=== PATIENT | male | born 1970 | race Two or more races ===

== ENCOUNTER 2025-03-03 07:15 | Emergency (ER) | payer OTHER ==
[~2025-03-03] VITALS: Ht 180.3 cm; Wt 95.3 kg
[2025-03-03] MEDS ORDERED: BUTALB/ACETAMINOPHEN/CAFFEINE 1 TAB TABLET PO ONE (08:30)
[2025-03-03 09:02] LABS: BASO % 0.4 % (0.1-1.2); EOS # 0.00 (0.04-0.54); EOS % 0.0 % (0.7-7.0); LYMPH # 0.33 (1.18-3.74); LYMPH % 5.8 % (19.3-53.1); MEAN PLATELET VOLUME 11.50 fl (9.4-12.4); MONO # 0.63 (0.24-0.82); MONO % 11.0 % (4.7-12.5); NEUT # 4.71 (1.56-6.13); NEUT % 82.4 % (34.0-71.1); RED CELL DISTRIBUTION WIDTH 14.4 % (11.6-14.4)
[2025-03-03 09:31] LABS: COVID-19 AG NEGATIVE (NEGATIVE)
[2025-03-03] MEDS ORDERED: OSEL75CA PO (09:33)
[2025-03-03] MEDS ORDERED: PEPCID AC20 MG PO (09:33)
== END 2025-03-03 09:41 | disposition home or self-care (01) ==
LOC: ER 08:45
PROVIDERS: General Practice
DX: J10.1 Influenza due to other identified influenza virus with other respiratory manifestations (principal); Z20.822 Contact with and (suspected) exposure to COVID-19; I10 Essential (primary) hypertension

== ENCOUNTER 2025-03-11 10:55 | Emergency (ER) | payer OTHER ==
[~2025-03-11] VITALS: Ht 177.8 cm; Wt 81.6 kg
[~2025-03-11 10:55] MED LIST: OSEL75CA PO; PEPCID AC20 MG PO
[2025-03-11] MEDS ORDERED: VAZALORE81 MG PO (11:57)
[2025-03-11] MEDS ORDERED: TOPROL XL25 M1 PO (11:57)
[2025-03-11] MEDS ORDERED: BENZONATATE 100 MG CAPSULE PO ONE (12:45)
[2025-03-11] MEDS ORDERED: BENZONATATE200 M1 PO (12:48)
[2025-03-11] MEDS ORDERED: DEXAMETHASONE SODIUM PHOSPHATE 4 MG/ML VIAL IM ONE (13:00)
[2025-03-11] MEDS ORDERED: DEXAMETHASONE SODIUM PHOSPHATE 4 MG/ML VIAL ONE (13:04)
== END 2025-03-11 13:11 | disposition home or self-care (01) ==
LOC: ER 10:55
DX: R05.3 Chronic cough (principal)